=== PATIENT | female | born 1950 | race Caucasian/White ===

== ENCOUNTER 2018-06-14 14:06 | Emergency (ER) | payer OTHER ==
[~2018-06-14] VITALS: Ht 152.4 cm; Wt 138.3 kg
[~2018-06-14 14:06] MED LIST: ASA325 MG PO; ECOTRIN325 MG PO; LEVAQUIN750 MG PO; PLAVIX75 MG PO; SULINDAC200 MG PO; TOPROL XL50 MG PO; ZOCOR40 MG PO
[2018-06-14] MEDS ORDERED: SULFAZINE EC500 MG (14:29)
[2018-06-14] MEDS ORDERED: PREDNISONE5 M1 (14:29)
[2018-06-14] MEDS ORDERED: FORTAMET500 MG (14:29)
== END 2018-06-14 16:46 | disposition home or self-care (01) ==
LOC: ER 14:06
DX: S80.02XA Contusion of left knee, initial encounter (principal); S00.83XA Contusion of other part of head, initial encounter; M17.12 Unilateral primary osteoarthritis, left knee; W18.09XA Striking against other object with subsequent fall, initial encounter; Y93.89 Activity, other specified; Y92.018 Other place in single-family (private) house as the place of occurrence of the external cause; Y99.8 Other external cause status

== ENCOUNTER 2018-06-23 10:57 | Emergency (ER) | payer OTHER ==
[~2018-06-23] VITALS: Ht 162.6 cm; Wt 138.3 kg
[~2018-06-23 10:57] MED LIST changes: +FORTAMET500 MG; +PREDNISONE5 M1; +SULFAZINE EC500 MG
== END 2018-06-23 18:45 | disposition home or self-care (01) ==
LOC: ER 10:57
DX: L03.116 Cellulitis of left lower limb (principal); M79.662 Pain in left lower leg; S80.02XS Contusion of left knee, sequela; W18.09XS Striking against other object with subsequent fall, sequela

== ENCOUNTER 2018-06-27 18:49 | Emergency (ER) | payer OTHER ==
[~2018-06-27] VITALS: Ht 162.6 cm; Wt 138.3 kg
[2018-06-27] MEDS ORDERED: MUPIROCIN22 GM TOP (21:17)
[2018-06-27] MEDS ORDERED: ULTRACET PO (21:17)
== END 2018-06-27 21:23 | disposition home or self-care (01) ==
LOC: ER 18:49
DX: L03.116 Cellulitis of left lower limb (principal); S80.12XS Contusion of left lower leg, sequela; W18.09XS Striking against other object with subsequent fall, sequela